=== PATIENT | female | born 1960 | race Caucasian/White ===

== ENCOUNTER → 2016-07-22 | Day surgery (SDC) | payer OTHER ==
[~2016-07-22] VITALS: Ht 167.6 cm; Wt 50.9 kg
[~2016-07-22] MED LIST: *MEPERIDINE 25 MG INJ VIAL PERIprocedural Use ONLY ONE; *morphine SULFATE 8 MG/ML PERIprocedure ONLY ONE; BETAMETHASONE SOD PHOS/ACETATE SUSP 30 MG/5 ML VIAL OTHER ONE; BUPIVACAINE/EPINEPHRINE 0.25% PF 10 ML VIAL ONE; CHLORHEXIDINE GLUCONATE 2 % 1 PACK (2 CLOTHS) TOPICAL PRN; CIPR500T4 PO; DICL75 PO; DICL75TA PO; DO NOT ADM ANY ANTICOAGULANT DRUGS PRN; FAMOTIDINE 20 MG/2 ML VIAL ONE; GELATIN 12 MM/7 MM FOAM ONE; GENTAMICIN SULFATE 80 MG/2 ML VIAL ONE; INSULIN HUMAN REGULAR 1,000 UNITS/10 ML VIAL SQ PRN; KETOROLAC TROMETHAMINE 60 MG/2 ML (IM) VIAL IM ONE; LACTATED RINGER'S 1000 ML INJ 1,000 ML IV ONE; LACTATED RINGER'S 1000 ML IV PRN; METOPROLOL TARTRATE 25 MG TAB PO PRN; MIDAZOLAM HCL 2 MG/2 ML VIAL ONE; MORPHINE SULFATE 4 MG/ML INJ IV PUSH PRN; NEOSTIGMINE 3 MG/3 ML SYR IV ONE; ONDANSETRON HCL 4 MG/2 ML VIAL IV PUSH ONE; PHENYLEPH/NS 1000 MCG/10 ML SYR IV ONE; POVIDONE IODINE 5% (ANTISEPSIS KIT) 4 APPLICATIONS EACH NARE PRN; POVIDONE IODINE 7.5% SCRUB 118 ML BOTTLE TOPICAL SCH; PROPOFOL 200 MG/20 ML AMP IV ONE; SODIUM CHLORID 0.9% 500 ML IV PRN; SODIUM CHLORIDE 10 ML FLUSH BID IV FLUSH SCH; SODIUM CHLORIDE 10 ML FLUSH PRN IV FLUSH; TRAM50TA PO; TRAZ100 PO; TRAZ100T4 PO; VALA500T PO; VALT500T PO; ZOFR8TAB4 PO; ceFAZolin 2 GM PREMIX 50 ML IV SCH; traMADol HCL 50 MG TAB PO PRN
--- NOTE | 2016-07-22 09:42 | MH ---
cc: ELSI KC DATE OF ADMISSION 07/22/2016 ADMISSION DIAGNOSIS Herniated nucleus pulposus lumbar spine. HISTORY This is a 55-year female with significant back, left hip and leg pain. Investigative studies shows evidence of a large sequestered disk herniation eccentric to the left L5-S1 level. The patient has significant weakness extending into the left leg. She has an altered reflex and dense loss of sensation in the S1 distribution. She presents for surgical treatment. PAST MEDICAL HISTORY, SOCIAL HISTORY AND FAMILY HISTORY AND REVIEW OF SYSTEMS See attached notes. PHYSICAL EXAMINATION This is a 55-year female in moderate disstress with back, left hip and leg. HEENT: Normocephalic, atraumatic. Pupils equal, round, reactive to light and accommodation. Extraocular motions intact. NECK: Supple. CHEST: Clear. HEART: Regular rate and rhythm. ABDOMEN: Soft and nontender. Normoactive bowel sounds. MUSCULOSKELETAL: The thoracolumbar spine has restricted motion, pain with range of motion. [id number] is positive on the left and negative on the right. Motor examination shows weakness in the left gastrocsoleus, left Achilles reflex is altered. There is dense altered sensation in the lower portion of the leg extending across the lateral border of the foot and plantar aspect of the foot. IMPRESSION 1. Herniated nucleus pulposus L5-S1 left, sequestered 2. Left lumbosacral radiculopathy PLAN Lumbar laminectomy left L5, S1, lateral recess decompression, resection herniated nucleus pulposus, use of dilation port and microscope. CONSENT The risks with surgery including infection, bleeding, loss of motion, continued pain, need for further surgery, neurologic and vascular injury. The patient understands these issues and wishes to press on with surgery as outlined above. MD ROXY Pacheco/ASHLEY /10:59 PM /9:30 AM
[2016-07-22 10:10] VITALS: BP 135/69; PULSE 69; RESP 20; TEMP 98.7; O2SAT 100
[2016-07-22 10:28] LABS: AUTOMATED NEUTROPHIL # 3.4 TH/MM3 (1.8-7.7); BASOPHIL % 0.9 % (0.0-2.0); EOSINOPHIL # 0.1 TH/MM3 (0-0.4); EOSINOPHIL % 1.5 % (0.0-4.0); HEMATOCRIT 41.6 % (35.0-46.0); HEMO FLAGS DIFF FINAL; LYMPH % 29.1 % (9.0-44.0); LYMPHOCYTE # 1.7 TH/MM3 (1.0-4.8); MEAN CELL VOLUME 93.4 FL (80.0-100.0); MEAN CORPUSCULAR HEMOGLOBIN 30.4 PG (27.0-34.0); MEAN CORPUSCULAR HGB CONC 32.6 % (32.0-36.0); MONO % 9.2 % (0.0-8.0); NEUT % 59.3 % (16.0-70.0); PLATELET COUNT 313 TH/MM3 (150-450); RED BLOOD COUNT 4.45 MIL/MM3 (4.00-5.30); RED CELL DISTRIBUTION WIDTH 13.6 % (11.6-17.2); WHITE BLOOD COUNT 5.7 TH/MM3 (4.0-11.0)
--- NOTE | 2016-07-22 14:08 | EKG ---
Date Performed: 07/22/2016 Time Performed: 10:22:29 PTAGE: 55 years EKG: Sinus rhythm NORMAL ECG PREVIOUS TRACING : 12/09/2014 13.02 Since previous tracing, no significant change noted DOCTOR: Lamont Christy Interpretating Date/Time 07/22/2016 14:00:57
--- NOTE | 2016-07-22 15:32 | PD.OP ---
cc: Boy Daily MD Operative Report Date of Surgery: Jul 22, 2016 Preoperative Diagnosis: Herniated nucleus pulposus L5-S1, left, sequestered. Left S1 radiculopathy Postoperative Diagnosis: Same Procedure: Lumbar laminectomy left L5, S1, lateral recess decompression, resection herniated nucleus pulposis Anesthesia: Gen. Surgeon: Boy Daily Simulation Tech(s): YAKOV Mcdaniel Operation and Findings: EBL: Minimal cc INDICATION: Patient is a 55-year-old female with significant back left hip and leg pain with weakness. Investigative studies shows evidence of the sequestered disc herniation to the left L5-S1 with displacement of the left S1 nerve root and severe lateral recess stenosis. This corresponds to the patient having weakness in the S1 distribution with altered sensation in the lateral aspect of the lower leg and foot. The patient presents for urgent surgical treatment NOTE: Hallie Mcdaniel PA-C was present for the entire surgical procedure as my cutter first. In my medical opinion her skill and care was necessary for the proper management of this patient. PROCEDURE: The patient was brought to the operating room and anesthetized in the supine position. The patient was rolled to a prone position on a Kendall frame on a Ramon table. All pressure points were protected in the back was scrubbed with alcohol followed by Hibiclens followed by ChloraPrep and draped sterilely. A timeout was done and antibiotics were given. AP and lateral radiographic images were used to identify the proper levels and perform skin markings. We started from the left side at the L5-S1 level. A paramedian incision was made and an off-midline fascial incision was made. A dilating system was placed down to the interlaminar space and held provisionally to the side of the table. The microscope was brought into the field. A high-speed bur under the microscope was used to perform a left sided laminectomy from that side. A lateral recess decompression involving the cephalad portion of the S1 lamina and inferior portion of the L5 lamina was accomplished using straight and angled Kerrison punches. A partial medial facetectomy was accomplished. The crossing and exiting nerve roots were completely decompressed. There was evidence of a sequestered disc herniation at and below the disc space with a separate fragment directly beneath the S1 nerve root below the level of the pedicle and almost extending into the foramen. Multiple fragments of disc came forth. There were no additional disc fragments that could be identified. The wound was irrigated copiously. A small piece of Gelfoam with Celestone was placed into the epidural space. Hemostasis was controlled. The deep fascia was approximated with interrupted 0 Vicryl suture subcutaneous suture with 2-0 Vicryl suture and skin with running intradermal 3-0 Vicryl followed by Dermabond. A field block with local anesthesia was utilized. A sterile dressing was applied. The sponge count and needle counts and instrument counts were all correct. The patient tolerated the procedure well as taken to the recovery room in satisfactory condition. FINDINGS: There was evidence of a large sequestered disc herniation and multiple fragments at and below the disc space. The S1 nerve root was completely decompressed and was without evidence of compromise. No complication was appreciated. Boy Daily MD Jul 22, 2016 15:32
[2016-07-22 17:33] VITALS: BP 112/67; PULSE 63; RESP 16; TEMP 97.4; O2SAT 99
--- NOTE | 2016-07-22 17:54 | RADRPT ---
EXAM DATE/TIME: 07/22/2016 14:58 [facility] COMPARISON: No previous studies available for comparison. INDICATIONS : L5-S1 laminectomy. MEDICAL HISTORY : None. SURGICAL HISTORY : None. ENCOUNTER: Initial ACUITY: 1 day PAIN SCORE: Non-responsive. LOCATION: Lumbar spine. FINDINGS: Single limited lateral view of the lumbar spine reveals hardware approaching the L5-S1 intervertebral disc space. CONCLUSION: Level localization at L5-S1 Cornelio Chang MD on July 22, 2016 at 17:51 Board Certified Radiologist. This report was verified electronically.
== END | disposition home or self-care (01) ==
LOC: HSDC 09:29
PROVIDERS: ATTEND Orthopaedic Surgery Orthopaedic Surgery of the Spine
DX: M51.17 Intervertebral disc disorders with radiculopathy, lumbosacral region (principal); M81.0 Age-related osteoporosis without current pathological fracture
CPT/HCPCS: 63030; 72020; 76000; 85025; 93005; J0702; J1580; J1885; J2175; J2250; J2270; J2370; J2405; J2710; J3010; J7120